=== PATIENT | female | born 1960 | race Caucasian/White ===

== ENCOUNTER 2019-01-04 09:57 | Day surgery (SDC) | payer BC ==
[2019-01-04] MEDS ORDERED: FENTAnyl 50 MCG/ML VIAL (11:24)
[2019-01-04] MEDS ORDERED: MIDAZOLAM 1 MG/ML 2 ML INJ ×2 (11:24)
== END 2019-01-04 13:56 | disposition home or self-care (01) ==
LOC: GIL 09:57
DX: Z12.11 Encounter for screening for malignant neoplasm of colon (principal); K64.8 Other hemorrhoids; D12.6 Benign neoplasm of colon, unspecified
CPT/HCPCS: 45380; 88305